=== PATIENT | female | born 1970 | race Caucasian/White ===

== ENCOUNTER → 2016-08-24 | Outpatient (CLI) | payer MEDICARE, MEDICAID | LOC: RAD 10:16 | PROVIDERS: ATTEND Family Medicine | DX: N92.0 Excessive and frequent menstruation with regular cycle (principal); D64.9 Anemia, unspecified; N85.2 Hypertrophy of uterus | CPT/HCPCS: 36415; 76856; 82607; 82728; 82746; 83540; 83550 ==